=== PATIENT | female | born 1950 | race Hispanic/Latino ===

== ENCOUNTER 2021-02-14 13:04 | Emergency (ER) | payer OTHER ==
--- OUTSIDE RECORDS SUMMARY | 2021-02-14 13:07 | XMS REPORT | Continuity of Care Document ---
:1950 Author Organization [facility] t Address [address] [place] [address] Care Team Providers Name Role Phone Unavailable Unavailable Unavailable Problems Condition Condition Condition Status Onset Resolution Last Treating Co mments Source Name Details Category Date Date Treatment Clinician Date Osteoarthr Osteoarthr Problem Active 2019-10 [facility] itis itis 1-03 Family 00:00: Practic 00 e Type II Type II Problem Active 2019-10 [facility] diabetes Diabetes 1-02 Family mellitus Mellitus 00:00: Practi c uncontroll Uncontroll 00 e ed ed Severe Severe Problem Active 2019-10 [facility] obesity Obesity 1-02 Family 00:00: Practic 00 e Hyperchole Hyperchole Problem Active [facility] sterolemia sterolemia 8-03 Fa aneta 00:00: Practic 00 e Hypertensi Hypertensi Problem Active [facility] ve ve 05-22 Family disorder Disorder 00:00: Practi c 00 e Overactive Overactive Problem Active [facility] bladder Bladder 05-22 Family 00:00: Practic 00 e Allergies, Adverse Reactions, Alerts Allergy Allergy Status Severity Reaction(s) Onset Inactive Treating Comm ents Source Name Type Date Date Clinician aspirin Adverse Active Info Not [facility] Reaction Available [facility] Social History Smoking Status Start Date Stop Date Source Never Smoker [facility] Medications Ordered Filled Start Stop Current Ordering Indication Dosage Frequency Signature Comments Components Source Medication Medication Date Date Medication? Clinician (SIG) Name Name Diclofenac Diclofenac 2019- No Na Reynoso [address] [facility] Sodium Sodium 06-30 applicatio Luke s - 00:00: 00:00 n to Memoria 00 :00 affected l [facility] Baclofen Baclofen 2019- No Na Reynoso [address] [facility] 06-30 with food [facility] 00:[facility]: 00:00 or milk Memoria 00 :00 [facility] Diclofenac Diclofenac 2019- No Na Reynoso [address] [facility] Sodium Sodium 06-30 with food [facility] - 00:00: 00:00 or milk Memoria 00 :00 [facility] Cristianouvia Cristianouvia 2018-10 Yes Na Reynoso [address] [facility] 0-24 [facility] 00:[facility]: [facility] 00 [facility] mg tablet mg tablet mg tablet Family Take 1 Take 1 Take 1 Practic tablet tablet tablet e every day every day every day by oral by oral by oral route. route. route. glimepiride glimepiride No 1 Q1D glimepirid [facility] 4 mg tablet 4 mg tablet e 4 mg Family Take 1 Take 1 tablet Practic tablet tablet Take 1 e every day every day tablet by oral by oral every day route. route. by oral route. [facility]ia [facility] mg tablet mg tablet mg tablet Family Take 1 Take 1 Take 1 Practic tablet tablet tablet e every day every day every day by oral by oral by oral route. route. route. lisinopril lisinopril No 1 Q1D lisinopril [facility] 10 mg 10 mg 10 mg Family tablet Take tablet Take tablet Practic 1 tablet 1 tablet Take 1 e every day every day tablet by oral by oral every day route. route. by oral route. metformin metformin No 1 BID metformin [facility] 1,000 mg 1,000 mg 1,000 mg Fam elis tablet Take tablet Take tablet Practic 1 tablet 1 tablet Take 1 e twice a day twice a day tablet by oral by oral twice a route. route. day by oral route. oxybutynin oxybutynin No 1 Q1D oxybutynin [facility] chloride 5 chloride 5 chloride 5 Family mg tablet mg tablet mg tablet Practic Take 1 Take 1 Take 1 e tablet tablet tablet every day every day every day by oral by oral by oral route. route. route. pravastatin pravastatin No 1 Q1D [facility] 40 mg 40 mg n 40 mg Family tablet Take tablet Take tablet Practic 1 tablet 1 tablet Take 1 e every day every day tablet by oral by oral every day route. route. by oral route. Pravastatin Pravastatin Yes Na Reynoso [address] [facility] Sodium Sodium [facility] Lisinopril Lisinopril Yes Na Reynoso [address] [facility] Diflucan Diflucan Yes Na Reynoso [address] [facility] Amaryl Amaryl Yes Na Reynoso [address] [facility] with [facility] - breakfast Memoria or the l first main Outpati meal of ent the day [facility] Metformin Metformin Yes Na Reynoso [address] [facility] HCl HCl with meals [facility] Baclofen Baclofen Yes Na Reynoso [address] [facility] with food [facility] - or milk [facility] Metformin Metformin Yes Na Reynoso TAKE ONE [facility] HCl HCl TABLET BY [facility] - MOUTH Memoria TWICE A l DAY WITH Outpati MEALS ent [facility] Lisinopril Lisinopril Yes Na Reynoso TAKE ONE [facility] TABLET BY [facility] - MOUTH Memoria DAILY [facility] Pravastatin Pravastatin Yes Na Reynoso TAKE ONE [facility] Sodium Sodium TABLET BY [facility] - MOUTH Memoria DAILY [facility] Oxybutynin Oxybutynin Yes Na Reynoso TAKE ONE [facility] Chloride Chloride TABLET BY Kizzy kes - MOUTH Memoria DAILY [facility] Immunizations Ordered Filled Immunization Date Status Comments [facility] e Immunization Name Name FluAD FluAD 2019-08-[address] [facility]00 [facility] Vital Signs Vital Name Observation Time Observation Value Comments Source Height 2020-08-25 00:00:00 57 [in_i] [facility] Practice Height 2020-05-22 00:00:00 57 [in_i] [facility] BMI (Body Mass 2020-05-22 00:00:00 38.1 kg/m2 [facility]) Practice Body Weight 2020-05-22 00:00:00 176 [lb_av] [facility] Procedures This patient has no known procedures. Encounters Start End Encounter Admission Attending Care Care Encounter Source Date/Time Date/Time Type Type Clinicians Facility Department ID 2021-01-25 2021-01-25 Outpatient [facility] [id number] [facility] 2020-11-23 2020-11-23 Outpatient [facility]LMLC [facility] [id number] [facility] 2020-08-31 2020-08-31 Outpatient [facility] [id number] [facility] 2020-08-25 2020-08-25 [facility] [place] - [id number] [facility] 00:00:00 00:00:00 [facility] Timoteo zaidi CIVIL ENGINEERING PROFESSOR: Andry Strong[address] Tori [email or web address], [place] [address], [place] [address] , Ph. 2020-08-17 2020-08-17 Outpatient STLMLC [facility] [id number] [facility] 2020-07-27 2020-07-27 Outpatient [facility] [id number] [facility] 2020-07-20 2020-07-20 Outpatient [facility] [id number] [facility] 2020-06-30 2020-06-30 [facility] [id number] [facility] 11:00:00 11:00:00 [facility] Medicine Medicine Outpati ent Clinics 2020-05-22 2020-05-22 L[facility] [place] - [id number] [facility]age 00:00:00 00:00:00 [facility] Timoteo zaidi CIVIL ENGINEERING PROFESSOR: Andry schroeder [address] [email or web address] [email or web address], [place] [address], [place] [address] , Ph. 2019-11-22 2019-11-22 [facility] [id number] [address] 10:37:00 10:37:[address] Luke s - Drive [facility] Medicine l Medicine Outpati ent Clinics 2019-11-15 2019-11-15 [facility] [id number] 09:40:00 09:40:[address] Luke s - Drive [facility] Medicine l Medicine Outpati ent Clinics 2019-11-07 2019-11-07 [facility] [id number] [address] 16:35:00 16:35:[address] Luke s - Drive [facility] Medicine l Medicine Outpati ent Clinics 2019-09-04 2019-09-04 [facility] [id number] 11:20:00 11:20:[address] Luke s - Drive [facility] Medicine l Medicine Outpati ent Clinics 2019-08-15 2019-08-15 [facility] [id number] 09:20:00 09:20:[address] Luke s - Drive [facility] Medicine l Medicine Outpati ent Clinics 2019-06-04 2019-06-04 [facility] [id number] 09:30:00 09:30:[address] Luke s - Drive [facility] Medicine l Medicine Outpati ent Clinics 2019-05-15 2019-05-15 [facility] [id number] 08:20:00 08:20:[address] Luke s - Drive [facility] Medicine l Medicine Outpati ent Clinics 2019-02-12 2019-02-12 [facility] [id number] 08:00:00 08:00:[address] Luke s - Drive [facility] Medicine l Medicine Outpati ent Clinics 2018-11-15 2018-11-15 [facility] [id number] 14:44:00 14:44:[address] Luke s - Drive [facility] Medicine l Medicine Outpati ent Clinics 2018-11-07 2018-11-07 [facility] [id number] 15:15:00 15:15:[address] Luke s - Drive [facility] ent [facility] 2018-07-09 2018-07-09 [facility] [place] [id number] [facility] 09:30:00 09:30:00 t [facility] ent Clinics Results This patient has no known results.
[2021-02-14 16:34] LABS: Absolute Lymphocytes (CBC) 1.2 K/uL (0.7-4.9); Basophils % 0.8 % (0-1.3); Hematocrit 33.5 % (36.0-45.0); Lymphocytes % 14.4 % (15.3-44.8); MPV 10.2 fL (7.6-11.3); RBC Red Blood Cell Count 3.65 M/uL (3.86-4.86)
[2021-02-14 16:52] LABS: Protime INR 1.37
[2021-02-14 17:05] LABS: ALT/SGPT 222 U/L (12-78); Albumin 3.1 g/dL (3.4-5.0); Alkaline Phosphatase 392 U/L (45-117); BUN Blood Urea Nitrogen 12 mg/dL (7-18); Bicarbonate 23 mmol/L (21-32); Glucose Level 201 mg/dL (74-106); NT PRO-BNP 674 pg/mL (<125); Protein, Total 7.9 g/dL (6.4-8.2); Sodium Level 138 mmol/L (136-145); Troponin (Emerg Dept Use Only) < 0.02 ng/mL (0.0-0.045)
[2021-02-14 17:35] LABS: AST/SGOT 245 U/L (15-37); Potassium 4.1 mmol/L (3.5-5.1)
--- NOTE | 2021-02-14 17:46 | RAD REPORT ---
EXAM DESCRIPTION: Leidy Single View02/14/2021 5:35 pm CLINICAL HISTORY: Weakness COMPARISON: none FINDINGS: The lungs appear clear of acute infiltrate. The heart is normal size IMPRESSION: No acute abnormalities displayed
--- NOTE | 2021-02-14 17:58 | RAD REPORT ---
EXAM DESCRIPTION: USExtrem Venous W Compress Bil02/14/2021 5:43 pm CLINICAL HISTORY: Leg swelling COMPARISON: none FINDINGS: The common femoral, superficial femoral, popliteal and posterior tibial veins bilaterally are compressible and demonstrate augmentation. Doppler demonstrates good flow. IMPRESSION: No evidence of deep venous thrombosis involving either lower extremity.
[2021-02-14 18:17] LABS: SARS-COV-2 RT PCR NEGATIVE (NEGATIVE)
[2021-02-14 18:22] LABS: Urine Blood Trace-intact (Negative); Urine Glucose Negative (Negative); Urine Protein Negative (Negative); Urine Specific Gravity 1.015 (1.005-1.030)
[2021-02-14 18:53] LABS: Urine Bacteria LOADED /HPF (<20); Urine RBC <5 /HPF (NONE SEEN)
[2021-02-14] MEDS ORDERED: CEFTRIAXONE/SWI 1gm 1 GM/10 ML SYR ONE (19:06)
--- NOTE | 2021-02-14 19:12 | ER ---
Nurse's Notes [facility] Name: Katina Dias Age: 70 yrs Sex: Female : 1950 Arrival Date: 02/14/2021 Time: 13:10 Bed 5 Private MD: Diagnosis: Urinary tract infection, site not specified Presentation: 02/14 13:17 Chief complaint: Patient states: Unable to hold urine for 3 weeks. Ernesto dysuria, just ll1 has no control over urine. States she has felt weak, fatigue, low grade fever since yesterday. No N/V/D. Coronavirus screen: Client denies travel out of the [place] in the last 14 days. At this time, the client does not indicate any symptoms associated with coronavirus-19. Ebola Screen: Patient denies travel to an Ebola-affected area in the 21 days before illness onset. Initial Sepsis Screen: Does the patient meet any 2 criteria? No. Patient's initial sepsis screen is negative. Does the patient have a suspected source of infection? Yes: Dysuria/Frequency/Urgency/UTI. Risk Assessment: Do you want to hurt yourself or someone else? Patient reports no desire to harm self or others. Onset of symptoms was January 24, 2021. 13:17 Method Of Arrival: Wheelchair ll1 13:17 Acuity: MARY 3 ll1 Historical: - Allergies: 13:19 Aspirin; ll1 - PMHx: 13:19 Diabetes - NIDDM; High Cholesterol; Hypertension; ll1 - PSHx: 13:19 Hysterectomy; Cholecystectomy; ll1 - Immunization history:: Client reports receiving the 2nd dose of the Covid vaccine, Flu vaccine is up to date. - Social history:: Smoking status: Patient denies any tobacco usage or history of. Screenin:15 Abuse screen: Denies threats or abuse. Denies injuries from another. Nutritional hb screening: No deficits noted. Tuberculosis screening: No symptoms or risk factors identified. Fall Risk None identified. Assessment: 16:10 General: Appears in no apparent distress. Behavior is calm, cooperative. Pain: Pain hb currently is 2 out of 10 on a pain scale. Neuro: Level of Consciousness is awake, alert, obeys commands, Oriented to person, place, time, situation. Cardiovascular: Reports since BLE swelling x 3 days Patient's skin is warm and dry. Respiratory: Respiratory effort is even, unlabored, Respiratory pattern is regular, symmetrical. GI: No signs and/or symptoms were reported involving the gastrointestinal system. : Reports bedwetting, burning with urination, urgency, urinary frequency. EENT: No signs and/or symptoms were reported regarding the EENT system. Derm: Skin is pink, warm \T\ dry. Musculoskeletal: No signs and/or symptoms reported regarding the musculoskeletal system. 17:11 Reassessment: Patient appears in no apparent distress at this time. Patient and/or hb family updated on plan of care and expected duration. Pain level reassessed. Patient is alert, oriented x 3, equal unlabored respirations, skin warm/dry/pink. 18:25 Reassessment: Pt ambulated to bathroom with cane and , urine specimen collected. hb 19:15 Reassessment: Patient appears in no apparent distress at this time. Patient and/or wh family updated on plan of care and expected duration. Pain level reassessed. Patient is alert, oriented x 3, equal unlabored respirations, skin warm/dry/pink. Vital Signs: 13:17 BP 151 / 54; Pulse 75; Resp 17; Temp 98.9; Pulse Ox 100% ; Weight 78.02 kg; Height 4 ll1 ft. 9 in. (144.78 cm); Pain 0/10; 16:10 BP 145 / 51; Pulse 72; Resp 15; Pulse Ox 97% on R/A; hb 17:11 BP 131 / 51; Pulse 70; Resp 14; Pulse Ox 100% on R/A; hb 17:43 BP 138 / 49; Pulse 76; Resp 16; Pulse Ox 100% ; sv 19:00 BP 128 / 58; Pulse 78; Resp 18; Pulse Ox 99% on R/A; wh 13:17 Body Mass Index 37.22 (78.02 kg, 144.78 cm) ll1 ED Course: 13:10 Patient arrived in ED. mr 13:18 Triage completed. ll1 13:20 Arm band placed on. ll1 15:48 Vasiliy Reeder NP is PHCP. pm1 15:48 Roberto Estrada MD is Attending Physician. pm1 16:07 Kimmie Oswald, HUMERA is Primary Nurse. hb 16:15 Patient has correct armband on for positive identification. Placed in gown. Bed in low hb position. Call light in reach. 16:21 Inserted saline lock: 22 gauge in right forearm, using aseptic technique. Blood hb collected. 16:44 Basic Metabolic Panel Sent. hb 17:43 XRAY Chest (1 view) In Process Unspecified. EDMS 17:44 Extrem Venous W Compression Hilario US In Process Unspecified. EDMS 19:30 No provider procedures requiring assistance completed. IV discontinued, intact, bleeding controlled, No redness/swelling at site. Administered Medications: 18:50 Drug: Rocephin (cefTRIAXone) 1 grams Route: IV; Rate: calculated rate; Site: right hb antecubital; 19:31 Follow up: Response: No adverse reaction; IV Status: Completed infusion Outcome: 19:12 Discharge ordered by MD. pm1 19:31 Discharged to home ambulatory, with family. 19:31 Condition: stable 19:31 Discharge instructions given to patient, family, Instructed on discharge instructions, follow up and referral plans. medication usage, POC Demonstrated understanding of instructions, follow-up care, medications, POC Prescriptions given X 1. 19:31 Patient left the ED. Addendum: 02/20/2021 11:11 Addendum: Culture Results: Positive urine culture. Bactrim sensitive for e.coli but a a5 unknown to str. groupB. Phone call Attempt #1 left voice mail. Signatures: Dispatcher [employer] Jes Marion, RN HUMERA Olguin Catalina Fan, Mehnaz, RN Maddie Ga RN RN Vasiliy Reeder, CASH APPLICATIONS COORDINATOR CASH APPLICATIONS COORDINATOR pm1 Kimmie Oswald RN RN William Delgado RN RN Pancho Brown RN RN ll1 Corrections: (The following items were deleted from the chart) 02/14 19:34 19:31 Discharged to home via wheelchair, with family, [facility] :34 19:31 Discharge instructions given to patient, family, Instructed on discharge instructions, follow up and referral plans. medication usage, POC Demonstrated understanding of instructions, follow-up care, medications, POC Prescriptions given X 1, 02/20 11:13 02/18/2021 08:42 Addendum: Culture Results: Positive urine culture. Bacteria is aa5 resistant to, has intermediate sensitivity, or is not tested against prescribed antibiotics. Report given to ROLO for further evaluation and then to timing inspector for follow up with patient. ss
--- NOTE | 2021-02-14 19:12 | EDPHYS ---
Physician Documentation [facility] Name: Katina Dias Age: 70 yrs Sex: Female : 1950 Arrival Date: 02/14/2021 Time: 13:10 Bed 5 Private MD: ED Physician Roberto Estrada HPI: 02/14 17:03 This 70 yrs old Female presents to ER via Wheelchair with complaints of pm1 Urinary Problem, Fever. 17:03 The patient presents with urinary symptoms, frequency, incontinence. Onset: The pm1 symptoms/episode began/occurred 3 week(s) ago. Modifying factors: The symptoms are alleviated by nothing, the symptoms are aggravated by Patient reports onset of urinary issues after covid vaccination. Associated signs and symptoms: Pertinent positives: subjective fever, Pertinent negatives: constipation, diarrhea, nausea, vomiting. Severity of symptoms: in the emergency department the symptoms are actually worse. The patient has not experienced similar symptoms in the past. Historical: - Allergies: 13:19 Aspirin; ll1 - PMHx: 13:19 Diabetes - NIDDM; High Cholesterol; Hypertension; ll1 - PSHx: 13:19 Hysterectomy; Cholecystectomy; ll1 - Immunization history:: Client reports receiving the 2nd dose of the Covid vaccine, Flu vaccine is up to date. - Social history:: Smoking status: Patient denies any tobacco usage or history of. ROS: 17:03 Positive for urinary frequency, bladder incontinence, Negative for burning with pm1 urination. 17:03 Cardiovascular: Negative for chest pain, palpitations, and edema, Respiratory: Negative for shortness of breath, cough, wheezing, and pleuritic chest pain, Abdomen/GI: Negative for abdominal pain, nausea, vomiting, diarrhea, and constipation, Back: Negative for injury and pain, MS/Extremity: Negative for injury and deformity, Skin: Negative for injury, rash, and discoloration. 17:03 Constitutional: Positive for fever, Negative for poor PO intake. Exam: 17:03 Constitutional: This is a well developed, well nourished patient who is awake, alert, pm1 and in no acute distress. Head/Face: Normocephalic, atraumatic. 17:03 Back: No spinal tenderness. No costovertebral tenderness. Full range of motion. Skin: Warm, dry with normal turgor. Normal color with no rashes, no lesions, and no evidence of cellulitis. MS/ Extremity: Pulses equal, no cyanosis. Neurovascular intact. Full, normal range of motion. 17:03 Cardiovascular: Rate: normal, Rhythm: regular, Pulses: no pulse deficits are appreciated, Edema: is not appreciated. 17:03 Respiratory: the patient does not display signs of respiratory distress, Respirations: normal, Breath sounds: are clear throughout. 17:03 Neuro: Exam negative for acute changes, Orientation: is normal, Mentation: is normal, Motor: is normal, moves all fours. Vital Signs: 13:17 BP 151 / 54; Pulse 75; Resp 17; Temp 98.9; Pulse Ox 100% ; Weight 78.02 kg; Height 4 ll1 ft. 9 in. (144.78 cm); Pain 0/10; 16:10 BP 145 / 51; Pulse 72; Resp 15; Pulse Ox 97% on R/A; hb 17:11 BP 131 / 51; Pulse 70; Resp 14; Pulse Ox 100% on R/A; hb 17:43 BP 138 / 49; Pulse 76; Resp 16; Pulse Ox 100% ; sv 19:00 BP 128 / 58; Pulse 78; Resp 18; Pulse Ox 99% on R/A; wh 13:17 Body Mass Index 37.22 (78.02 kg, 144.78 cm) ll1 MDM: 15:52 Patient medically screened. pm1 19:05 Data reviewed: vital signs. Data interpreted: Pulse oximetry: on room air is 100 %. pm1 Interpretation: normal. Counseling: I had a detailed discussion with the patient and/or guardian regarding: the historical points, exam findings, and any diagnostic results supporting the discharge/admit diagnosis, lab results, radiology results, the need for outpatient follow up, to return to the emergency department if symptoms worsen or persist or if there are any questions or concerns that arise at home. 02/14 16:03 Order name: Basic Metabolic Panel pm1 02/14 16:03 Order name: CBC with Diff pm1 02/14 16:03 Order name: LFT's; Complete Time: 17:41 pm1 02/14 16:03 Order name: Magnesium; Complete Time: 17:41 pm1 02/14 16:03 Order name: NT PRO-BNP; Complete Time: 17:41 pm1 02/14 16:03 Order name: PT-INR; Complete Time: 17:35 pm1 02/14 16:03 Order name: Troponin (emerg Dept Use Only); Complete Time: 17:41 pm1 02/14 16:04 Order name: Basic Metabolic Panel; Complete Time: 17:41 EDMS 02/14 18:17 Order name: COVID-19/FLU A+B; Complete Time: 18:34 EDMS 02/14 18:22 Order name: Urine Dipstick-Ancillary [facility] 02/14 18:25 Order name: Urine Microscopic Only; Complete Time: 19:18 hb 02/14 16:03 Order name: XRAY Chest (1 view); Complete Time: 17:50 pm1 02/14 16:03 Order name: EKG; Complete Time: 16:04 pm1 02/14 16:03 Order name: Cardiac monitoring; Complete Time: 16:44 pm1 02/14 16:03 Order name: EKG - Nurse/Tech; Complete Time: 16:43 pm1 02/14 16:03 Order name: IV Saline Lock; Complete Time: 16:44 pm1 02/14 16:03 Order name: Labs collected and sent; Complete Time: 16:44 pm1 02/14 16:03 Order name: O2 Per Protocol; Complete Time: 16:44 pm1 02/14 16:03 Order name: O2 Sat Monitoring; Complete Time: 16:44 pm1 02/14 16:03 Order name: Extrem Venous W Compression Hilario US; Complete Time: 18:03 pm1 02/14 18:03 Order name: Urine Dipstick-Ancillary (obtain specimen); Complete Time: 18:25 pm1 02/14 18:54 Order name: Urine Culture EDHI Administered Medications: 18:50 Drug: Rocephin (cefTRIAXone) 1 grams Route: IV; Rate: calculated rate; Site: right hb antecubital; 19:31 Follow up: Response: No adverse reaction; IV Status: Completed infusion wh Disposition: 02/14/21 19:12 Discharged to Home. Impression: Urinary tract infection, site not specified. - Condition is Stable. - Discharge Instructions: Urinary Tract Infection, Adult. - Prescriptions for Bactrim DS 800- 160 mg Oral Tablet - take 1 tablet by ORAL route every 12 hours for 10 days; 20 tablet. - Medication Reconciliation Form, Thank You Letter, Antibiotic Education, Prescription Opioid Use form. - Follow up: Emergency Department; When: As needed; Reason: Worsening of condition. Follow up: Private Physician; When: 2 - 3 days; Reason: Recheck today's complaints, Continuance of care, Re-evaluation by your physician. - Problem is new. - Symptoms have improved. Addendum: 02/17/2021 17:30 Co-signature as Attending Physician, Roberto yo Signatures: Dispatcher [employer] EDHI Roberto Estrada MD MD pkl Vasiliy Reeder, MASTER POLICE DETECTIVE MASTER POLICE DETECTIVE pm1 Kimmie Oswald, RN RN William Delgado, RN RN Pancho Brown RN RN ll1 Corrections: (The following items were deleted from the chart) 02/14 16:33 16:04 CORONAVIRUS+MR.LAB.BRZ ordered. EDHI EDHI 16:37 16:04 Influenza Screen (A \T\ B)+BA.LAB.BRZ ordered. [facility] EDHI 19:31 19:12 02/14/2021 19:12 Discharged to Home. Impression: Urinary tract infection, site wh not specified. Condition is Stable. Forms are Medication Reconciliation Form, Thank You Letter, Antibiotic Education, Prescription Opioid Use. Follow up: Emergency Department; When: As needed; Reason: Worsening of condition. Follow up: Private Physician; When: 2 - 3 days; Reason: Recheck today's complaints, Continuance of care, Re-evaluation by your physician. Problem is new. Symptoms have improved. pm1
[2021-02-14 19:38] VITALS: TEMP 98.9
[2021-02-14 19:44] VITALS: BP 128/58; O2SAT 99
[2021-02-14 21:40] LABS: Blood Morphology Comment NOT SEEN (NOT SEEN); Platelet Estimate ADEQ; White Blood Cell Scan OK (OK)
--- NOTE | 2021-02-15 10:48 | EKG ---
Test Date: 2021-02-14 Test Time: 16:28:33 [employer]ist: HB MEASUREMENT RESULTS: Intervals: Rate: 77 HI: 120 QRSD: 84 QT: 398 QTc: 450 [place]: P: 39 HI: 120 QRS: 46 T: 64 INTERPRETIVE STATEMENTS: Normal sinus rhythm Normal ECG Compared to ECG 09/14/2016 15:25:00 No significant changes Electronically Signed On 02-15-21 10:46:39 CDT by Ta Taylor
== END 2021-02-14 19:31 | disposition home or self-care (01) ==
LOC: ER 13:04
DX: N39.0 Urinary tract infection, site not specified (principal); Z20.822 Contact with and (suspected) exposure to COVID-19; I10 Essential (primary) hypertension; E11.9 Type 2 diabetes mellitus without complications; Z88.6 Allergy status to analgesic agent
CPT/HCPCS: 96365; 93005; 87088; 85025; 87086; 80048; 36415; 83735; 85610; 80076; 84484; 83880; 0240U; 71045; 93970; 99284; J0696; 81003; 81015; 87077; 87186